=== PATIENT | female | born 1955 | race Caucasian/White ===

== ENCOUNTER → 2018-12-10 | Outpatient (CLI) | payer MEDICARE ==
--- NOTE | 2018-12-10 11:42 | Diagnostic Imaging Report ---
PATIENT HISTORY: OSTEOARTHRITIS SHOULDERS BILATERAL. TECHNIQUE: Three views of the right and left shoulders COMPARISON: None FINDINGS: Right shoulder: There are severe degenerative changes in the right glenohumeral joint with mild remodeling of the humerus articular surface. Multiple large joint bodies are present. There are marked degenerative changes at the acromioclavicular joint as well, with mild offset which may be from prior injury. No acute fracture is seen. Left shoulder: There are severe degenerative changes in the left glenohumeral joint with large osteophytes and mild remodeling of the humerus articular surface. There are moderate degenerative changes in the left acromioclavicular joint. No acute fracture is seen. Alignment otherwise appears normal. IMPRESSION: 1. Severe degenerative changes in the bilateral glenohumeral joints and right acromioclavicular joint. 2. Mild offset at the right AC joint, may be from prior injury. 3. Multiple large joint bodies in the right shoulder. Dictated by: Dictated on workstation # [id number]
== END ==
LOC: RAD FS 10:56
PROVIDERS: ATTEND Nurse Practitioner
DX: M19.012 Primary osteoarthritis, left shoulder (principal); M19.011 Primary osteoarthritis, right shoulder

== ENCOUNTER → 2019-04-08 | Outpatient (CLI) | payer MEDICARE | LOC: CARD 13:51 | PROVIDERS: ATTEND Pediatrics | DX: I51.7 Cardiomegaly (principal); R60.0 Localized edema | CPT/HCPCS: 93306 ==

== ENCOUNTER 2021-07-20 16:06 | Emergency (ER) | payer MEDICARE, MEDICAID ==
[~2021-07-20] VITALS: Ht 170 cm; Wt 170.0 kg
[2021-07-20 16:06] VITALS: BP 131/75
[~2021-07-20 16:06] MED LIST: AMOX-358 PO; ASCO500T75 PO; BISA5TAB8 PO; DIPH25CA79 PO; DOCU-143 PO; FERR325T5 PO; FLUO40CA PO; FURO20TA4 PO; HYDR-3870 PO; LEVO200T6 PO; LISI10TA25 PO; MAGN250T31 PO; MELO15TA39 PO; MULT-166 PO; PANT40TA52 PO; POLY17PO54 PO; POTA99TA18 PO; SENN-234 PO; SULF1TAB38 PO; TRIA1TAB3 PO; Trimethoprim/Sulfamethoxazole PO
[2021-07-20] MEDS ORDERED: NS IV 1000 ML 1,000 ML IV STA ×2 (16:10→17:23)
[2021-07-20 16:22] LABS: BASOPHILS % (AUTO) 0 % (0-10); EOSINOPHILS % (AUTO) 0 % (0-10); HEMATOCRIT 34 % (35-52); HEMOGLOBIN 11.1 g/dL (11.5-16.0); LYMPHOCYTES % (AUTO) 19 % (12-44); MEAN CORPUSCULAR HEMOGLOBIN 29 pg (25-34); MEAN CORPUSCULAR HGB CONC 33 g/dL (32-36); MEAN CORPUSCULAR VOLUME 87 fL (80-99); MEAN PLATELET VOLUME 9.7 fL (9.0-12.2); MONOCYTES # (AUTO) 0.5 10^3/uL (0.0-1.0); MONOCYTES % (AUTO) 10 % (0-12); NEUTROPHILS # (AUTO) 3.8 10^3/uL (1.8-7.8); NEUTROPHILS % (AUTO) 70 % (42-75); PLATELET COUNT 191 10^3/uL (130-400); WHITE BLOOD COUNT 5.4 10^3/uL (4.3-11.0)
[2021-07-20 16:32] LABS: BILIRUBIN,URINE NEGATIVE (NEGATIVE); CLARITY,URINE CLOUDY; COLOR,URINE YELLOW; GLUCOSE, URINE (UA) NEGATIVE (NEGATIVE); KETONES,URINE NEGATIVE (NEGATIVE); LEUKOCYTE ESTERASE ,URINE 1+ (NEGATIVE); NITRITE,URINE POSITIVE (NEGATIVE); PROTEIN,URINE 2+ (NEGATIVE)
[2021-07-20 16:44] LABS: BILIRUBIN,TOTAL 0.4 MG/DL (0.1-1.0); CALCIUM 8.9 MG/DL (8.5-10.1); CREATININE SERUM 1.91 MG/DL (0.60-1.30); POTASSIUM 3.7 MMOL/L (3.6-5.0)
[2021-07-20 16:45] LABS: ALBUMIN 3.6 GM/DL (3.2-4.5); TOTAL PROTEIN 7.4 GM/DL (6.4-8.2)
[2021-07-20 16:46] LABS: BACTERIA,URINE MODERATE /HPF; WBC,URINE 25-50 /HPF
[2021-07-20] MEDS ORDERED: cefTRIAXone 2,000 MG in NS (IVPB) 50 ML IV STA (17:23)
--- NOTE | 2021-07-20 17:33 | Diagnostic Imaging Report ---
PROCEDURE: CT abdomen and pelvis without contrast. TECHNIQUE: Multiple contiguous axial images were obtained through the abdomen and pelvis without the use of intravenous contrast. Auto Exposure Controls were utilized during the CT exam to meet ALARA standards for radiation dose reduction. INDICATION: Diarrhea for one week. COMPARISON: No prior studies are available for comparison. FINDINGS: Imaging through the lung bases does show some patchy airspace infiltrate in the right middle lobe and bilateral lung bases. The liver is unremarkable. The gallbladder is surgically absent. There is no biliary ductal dilatation. The pancreas and spleen are unremarkable. There is a low-density mass involving the right adrenal gland measuring 3.2 x 2.8 cm suggestive of an adenoma. No renal calculi or hydronephrosis is seen. Aorta is calcified but nonaneurysmal. There is diverticulosis of the descending and sigmoid colon. No bowel obstruction is seen. There is no free fluid or fluid collection. No significant inflammatory changes are identified. The uterus and bladder are unremarkable. Severe chronic changes to the left hip are noted. IMPRESSION: 1. Patchy bibasilar infiltrates suggestive of pneumonia. 2. No evidence of urinary tract calculi or obstruction. 3. Low-density right adrenal mass suggestive of adenoma. 4. Colonic diverticulosis without evidence of acute diverticulitis. Dictated by: Dictated on workstation # [id number]
--- NOTE | 2021-07-20 17:37 | Diagnostic Imaging Report ---
INDICATION: Cough. TIME OF EXAM: 05:26 p.m. COMPARISON: No prior studies are available for comparison. FINDINGS: The heart size is normal. The pulmonary vascularity is unremarkable. The lungs are clear. No infiltrate, effusion or pneumothorax is detected. IMPRESSION: No acute cardiopulmonary process is detected. Dictated by: Dictated on workstation # [id number]
[2021-07-20] MEDS ORDERED: LEVO750T39 PO (17:52)
--- NOTE | 2021-07-20 18:29 | ED General ---
General Chief Complaint: General Problems/Pain Stated Complaint: DEHYDRATION Source of Information: Patient, EMS History of Present Illness Date Seen by Provider: Jul 20, 2021 Time Seen by Provider: 16:06 Initial Comments 66 yo female presenting by EMS from home with complaints of having diarrhea and cough x 1 week. She was feeling weak and having body aches. She reports she had her caregiver perform a Covid test on her at home today and it was negative per patient report. She has not called her doctor or tried to contact him or be seen in clinic or urgent care for her symptoms. She reports nothing was worse today, she just felt that her symptoms had gone on too long since it had been a week. She denies abdominal pain, nausea, vomiting, fever, chills, pain with urination, blood in urine, blood in stools. She is morbidly obese and has difficulty with her mobility due to this. She does take chronic pain medicine of Hydrocodone and Meloxicam from her PCP, Dr. York. She also has hypertension and hypothyroid. Timing/Duration: 1 Week Severity: Moderate Modifying Factors: worse with Eating Associated Systoms: No Chest Pain; Cough; No Diaphoresis, No Fever/Chills, No Headaches, No Loss of Appetite; Malaise; No Nausea/Vomiting, No Rash, No Seizure, No Shortness of Air, No Syncope; Weakness (general) Allergies and Home Medications Allergies Coded Allergies: No Known Allergies (Verified Allergy, Unknown, 07/25/19) Patient Home Medication List Home Medication List Reviewed: Yes Amoxicillin/Potassium Clav (Augmentin 875-125 Tablet) 1 Each Tablet, 1 EACH PO BID Prescribed by: SALONI TAVERAS on 08/01/19 0812 Ascorbic Acid (Vitamin C with Rebeca Hips) 500 Mg Tablet, 500 MG PO DAILY, (Reported) Entered as Reported by: ANICETO JEROME on 07/26/19 1126 Bisacodyl (Bisacodyl) 5 Mg Tablet., 5 MG PO DAILY PRN for CONSTIPATION-1ST LINE Prescribed by: SALONI TAVERAS on 08/01/19 0856 Diphenhydramine HCl (Benadryl) 25 Mg Capsule, 25-50 MG PO Q6H PRN for ALLERGIC REACTIONS, (Reported) Entered as Reported by: ANICETO JEROME on 07/26/19 1126 Docusate Sodium (Colace) 100 Mg Capsule, 100 MG PO BID Prescribed by: SALONI TAVERAS on 08/01/19 08 Ferrous Sulfate (Ferrous Sulfate) 325 Mg Tablet.dr, 325 MG PO DAILY Prescribed by: SALONI TAVERAS on 08/01/19 08 Fluoxetine HCl (Fluoxetine HCl) 40 Mg Capsule, 40 MG PO DAILY, (Reported) Entered as Reported by: ANICETO JEROME on 07/26/19 112 Furosemide (Furosemide) 20 Mg Tablet, 20 MG PO DAILY, (Reported) Entered as Reported by: ANICETO JEROME on 07/26/19 112 Hydrocodone/Acetaminophen (Lorcet 5-325 mg Tablet) 1 Each Tablet, 1 EA PO Q6H PRN for PAIN-MODERATE (5-7) Prescribed by: SALONI TAVERAS on 08/01/19811 Levofloxacin (Levofloxacin) 750 Mg Tablet, 750 MG PO DAILY Prescribed by: KATHIA CORTES on 07/20/21 175 Levothyroxine Sodium (Levothyroxine Sodium) 200 Mcg Tablet, 200 MCG PO DAILY, (Reported) Entered as Reported by: ANICETO JEROME on 07/26/191125 Magnesium (Magnesium) 250 Mg Tablet, 250 MG PO DAILY, (Reported) Entered as Reported by: ANICETO JEROME on 07/26/191125 Multivitamin with Minerals (Multivitamins with Minerals) 1 Each Tablet, 1 EACH PO DAILY, (Reported) Entered as Reported by: ANICETO JEROME on 07/26/191125 Pantoprazole Sodium (Pantoprazole Sodium) 40 Mg Tablet.dr, 40 MG PO DAILY Prescribed by: SALONI TAVERAS on 08/01/19811 Polyethylene Glycol 3350 (Polyethylene Glycol 3350) 17 Gm Powd.pack, 17 GM PO DAILY Prescribed by: SALONI TAVERAS on 08/01/19811 Potassium Gluconate (Potassium Gluconate) 99 Mg Tablet.er, 99 MG PO DAILY, (Reported) Entered as Reported by: ANICETO JEROME on 07/26/191125 Sennosides (Senna) 8.6 Mg Tablet, 8.6 MG PO BID Prescribed by: SALONI TAVERAS on 08/01/19855 Sulfamethoxazole/Trimethoprim (Bactrim Ds Tablet) 1 Each Tablet, 1 EACH PO BID WITH MEALS Prescribed by: SALONI TAVERAS on 08/01/19 0814 Triamterene/Hydrochlorothiazid (Triamterene-Hctz 37.5-25 mg Tb) 1 Each Tablet, 1 EA PO BID, (Reported) Entered as Reported by: ANICETO JEROME on 07/26/19 1126 Review of Systems Review of Systems Constitutional: see HPI EENTM: no symptoms reported Respiratory: see HPI Cardiovascular: no symptoms reported Gastrointestinal: see HPI Genitourinary: No dysuria Musculoskeletal: other (chronic arthritis pain and having muscle cramps and pains since she has been having diarrhea) Skin: no symptoms reported Psychiatric/Neurological: No Symptoms Reported Past Blsqsie-Irmsab-Bmqaok Hx Patient Social History Tobacco Use?: No Use of E-Cig and/or Vaping dev: No Substance use?: No Alcohol Use?: No Pt feels they are or have been: No Seasonal Allergies Seasonal Allergies: No Past Medical History Surgery/Hospitalization HX: HTN, Hypothyroid, Morbid Obesity Surgeries: Yes Gallbladder, Tubal Ligation Respiratory: No Cardiac: Yes Hypertension Neurological: No Genitourinary: No Gastrointestinal: No Musculoskeletal: Yes Arthritis Endocrine: Yes Hypothyroidsim HEENT: No Cancer: No Psychosocial: No Integumentary: No Blood Disorders: No Physical Exam Vital Signs Vital Signs - First Documented 07/20/21 16:06 Temp 36.2 Pulse 91 Resp 18 B/P (MAP) 131/75 (93) Pulse Ox 94 O2 Delivery Room Air Capillary Refill : Height, Weight, BMI Height: '" Weight: lbs. oz. kg; 64.81 BMI Method: General Appearance: No Apparent Distress, Obese HEENT: PERRL/EOMI, Pharynx Normal Neck: Full Range of Motion, Normal Inspection, Non Tender, Supple Respiratory: Chest Non Tender, No Accessory Muscle Use, No Respiratory Distress, Decreased Breath Sounds Cardiovascular: Regular Rate, Rhythm, Normal Peripheral Pulses, Other (distant heart sounds due to body habitus) Gastrointestinal: No Pulsatile Mass, Non Tender, Soft, Abnormal Bowel Sounds (hyperactive bowel sounds); No Distended, No Guarding, No Rebound, No Tenderness; Other (obese abdomen limits evaluation) Rectal: Deferred Extremity: Normal Capillary Refill, No Calf Tenderness, Pedal Edema (1+ BLE) Neurologic/Psychiatric: Alert, Oriented x3, incendiary powder mixer II-XII Norm as Tested Skin: Normal Color, Warm/Dry Focused Exam Lactate Level 07/20/21 16:07: Lactic Acid Level 1.53 Lactic Acid Level Laboratory Tests Test 07/20/21 16:07 Lactic Acid Level 1.53 MMOL/L (0.50-2.00) Progress/Results/Core Measures Suspected Sepsis SIRS Temperature: Pulse: Respiratory Rate: Laboratory Tests 07/20/21 16:07: White Blood Count 5.4 Blood Pressure / Mean: 07/20/21 16:07: Lactic Acid Level 1.53 Laboratory Tests 07/20/21 16:07: Creatinine 1.91H, Platelet Count 191, Total Bilirubin 0.4 Results/Orders Lab Results Laboratory Tests Test 07/20/21 16:07 07/20/21 16:12 07/20/21 16:24 Range/Units White Blood Count 5.4 4.3-11.0 10^3/uL Red Blood Count 3.87 3.80-5.11 10^6/uL Hemoglobin 11.1 L 11.5-16.0 g/dL Hematocrit 34 L 35-52 % Mean Corpuscular Volume 87 80-99 fL Mean Corpuscular Hemoglobin 29 25-34 pg Mean Corpuscular Hemoglobin Concent 33 32-36 g/dL Red Cell Distribution Width 14.6 H 10.0-14.5 % Platelet Count 191 130-400 10^3/uL Mean Platelet Volume 9.7 9.0-12.2 fL Immature Granulocyte % (Auto) 1 % Neutrophils (%) (Auto) 70 42-75 % Lymphocytes (%) (Auto) 19 12-44 % Monocytes (%) (Auto) 10 0-12 % Eosinophils (%) (Auto) 0 0-10 % Basophils (%) (Auto) 0 0-10 % Neutrophils # (Auto) 3.8 1.8-7.8 10^3/uL Lymphocytes # (Auto) 1.0 1.0-4.0 10^3/uL Monocytes # (Auto) 0.5 0.0-1.0 10^3/uL Eosinophils # (Auto) 0.0 0.0-0.3 10^3/uL Basophils # (Auto) 0.0 0.0-0.1 10^3/uL Immature Granulocyte # (Auto) 0.1 0.0-0.1 10^3/uL Sodium Level 137 135-145 MMOL/L Potassium Level 3.7 3.6-5.0 MMOL/L Chloride Level 100 98-107 MMOL/L Carbon Dioxide Level 24 21-32 MMOL/L Anion Gap 13 5-14 MMOL/L Blood Urea Nitrogen 22 H 7-18 MG/DL Creatinine 1.91 H 0.60-1.30 MG/DL Estimat Glomerular Filtration Rate 29 BUN/Creatinine Ratio 12 Glucose Level 127 H 70-105 MG/DL Lactic Acid Level 1.53 0.50-2.00 MMOL/L Calcium Level 8.9 8.5-10.1 MG/DL Corrected Calcium 9.2 8.5-10.1 MG/DL Magnesium Level 2.0 1.6-2.4 MG/DL Total Bilirubin 0.4 0.1-1.0 MG/DL Aspartate Amino Transf (AST/SGOT) 26 5-34 U/L Alanine Aminotransferase (ALT/SGPT) 20 0-55 U/L Alkaline Phosphatase 68 40-136 U/L Total Protein 7.4 6.4-8.2 GM/DL Albumin 3.6 3.2-4.5 GM/DL Lipase 47 8-78 U/L Influenza Type A Antigen NEGATIVE NEGATIVE Influenza Type B Antigen NEGATIVE NEGATIVE SARS-CoV-2 RNA (RT-PCR) Detected H Not Detecte Urine Color YELLOW Urine Clarity CLOUDY Urine pH 7.0 5-9 Urine Specific [place] 1.015 L 1.016-1.022 Urine Protein 2+ H NEGATIVE Urine Glucose (UA) NEGATIVE NEGATIVE Urine Ketones NEGATIVE NEGATIVE Urine Nitrite POSITIVE H NEGATIVE Urine Bilirubin NEGATIVE NEGATIVE Urine Urobilinogen 0.2 < = 1.0 MG/DL Urine Leukocyte Esterase 1+ H NEGATIVE Urine RBC (Auto) TRACE-I H NEGATIVE Urine RBC NONE /HPF Urine WBC 25-50 H /HPF Urine Squamous Epithelial Cells 5-10 /HPF Urine Crystals NONE /LPF Urine Bacteria MODERATE H /HPF Urine Casts NONE /LPF Urine Mucus NEGATIVE /LPF Urine Culture Indicated YES My Orders Orders - KATHIA CORTES MD Comprehensive Metabolic Panel (07/20/21 16:10) Lipase (07/20/21 16:10) Ua Culture If Indicated (07/20/21 16:10) Ed Iv/Invasive Line Start (07/20/21 16:10) Cbc With Automated Diff (07/20/21 16:10) Fecal Wbc (07/20/21 16:10) Isolation Central Supply Req (07/20/21 16:10) Blood Culture (07/20/21 16:10) Covid 19 Inhouse Test (07/20/21 16:10) Lactic Acid Analyzer (07/20/21 16:10) Isolation Central Supply Req (07/20/21 16:10) Chest 1 View Ap/Pa Only (07/20/21 16:10) Influenza A & B Antigens (07/20/21 16:10) Magnesium (07/20/21 16:10) Ns Iv 1000 Ml (Sodium Chloride 0.9%) (07/20/21 16:10) Urine Culture (07/20/21 16:24) Ct Abdomen/Pelvis Wo (07/20/21 16:10) Ceftriaxone (Rocephin) (07/20/21 17:23) Ns Iv 1000 Ml (Sodium Chloride 0.9%) (07/20/21 17:23) Vital Signs/I&O 07/20/21 07/20/21 16:06 19:00 Temp 36.2 Pulse 91 85 Resp 18 18 B/P (MAP) 131/75 (93) 122/60 Pulse Ox 94 94 O2 Delivery Room Air Room Air Capillary Refill : Progress Note #1: Progress Note Obtain basic labs, blood cultures, stool for culture, COVID swab with Influenza. Try to get CT scan of abdomen/pelvis and CXR. Give IVF 1 L NS for hydration. differential diagnosis includes Covid, Colitis, Diverticulitis, Gastroenteritis, Food poisoning, viral syndrome Progress Note #2: Time: 16:49 Progress Note CBC stable without elevated WBC count. Lactic acid not elevated. Chemistry shows BUN of 22 with Cr of 1.91. UA does show findings of UTI with Nitrites, LE, 20-50 WBC and Bacteria. Her specific gravity is 1.015. Awaiting CT scan but with her GFR at 29 will have to change to non-contrast study. On review of her old chart in july 2019 her Cr was 1.9 and she has had Cr from 1.4 to 1.9 when she was seen 2 years ago. Progress Note #3: Time: 17:[address] scan of abdomen/pelvis shows no obstruction or acute significant pathology in abdomen/pelvis. She has some bilateral patchy infiltrate in lung bases. She has continued to have good oxygen saturation 98-100 % on room air. Again WBC count and Lactic acid are both normal and not elevated. She does have an adrenal adenoma seen on imaging as an incidental finding. Will proceed with rocephin dose here and an additional Liter of NS for hydration. Will plan on discharge on Levaquin for her lungs and urine coverage. This could help some for her diarrhea if it is infectious but this might just be viral in nature. Still trying to get stool specimen to send for stool studies. Counseled pt to treat for urine and lungs will try using fluorquinolone. The lungs having patchy bilateral infiltrate concerning for Covid but swab from here would take up to 24 to 48 hours to come back.Counseled to quarantine until results from [facility] are known. Treat symptomaticaly along [facility] antibiotic for UTI and possible atypical or bacterial pneumonia. Diagnostic Imaging Diagonstic Imaging: CT Plain Films/CT/US/NM/MRI: abdomen, pelvis Comments NAME: AUTUMN BROWN MED REC#: [id number] PT STATUS: REG ER : 1955 PHYSICIAN: KATHIA CORTES MD ADMIT DATE: 07/20/21/ER FS Draft Date of Exam:07/20/21 CT ABDOMEN/PELVIS WO PROCEDURE: CT abdomen and pelvis without contrast. TECHNIQUE: Multiple contiguous axial images were obtained through the abdomen and pelvis without the use of intravenous contrast. Auto Exposure Controls were utilized during the CT exam to meet ALARA standards for radiation dose reduction. INDICATION: Diarrhea for one week. COMPARISON: No prior studies are available for comparison. FINDINGS: Imaging through the lung bases does show some patchy airspace infiltrate in the right middle lobe and bilateral lung bases. The liver is unremarkable. The gallbladder is surgically absent. There is no biliary ductal dilatation. The pancreas and spleen are unremarkable. There is a low-density mass involving the right adrenal gland measuring 3.2 x 2.8 cm suggestive of an adenoma. No renal calculi or hydronephrosis is seen. Aorta is calcified but nonaneurysmal. There is diverticulosis of the descending and sigmoid colon. No bowel obstruction is seen. There is no free fluid or fluid collection. No significant inflammatory changes are identified. The uterus and bladder are unremarkable. Severe chronic changes to the left hip are noted. IMPRESSION: 1. Patchy bibasilar infiltrates suggestive of pneumonia. 2. No evidence of urinary tract calculi or obstruction. 3. Low-density right adrenal mass suggestive of adenoma. 4. Colonic diverticulosis without evidence of acute diverticulitis. Dictated on workstation # [id number] Dict: 07/20/21 1726 Trans: 07/20/21 173 [id number] Interpreted by: ERICKA PRESCOTT MD Electronically signed by: Reviewed: Reviewed by Me Diagonstic Imaging: Xray Plain Films/CT/US/NM/MRI: chest Comments [facility] [place] NAME: AUTUMN BROWN [facility] REC#: [id number] PT STATUS: REG ER : 1955 PHYSICIAN: KATHIA CORTES MD ADMIT DATE: 07/20/21/ER FS Draft Date of Exam:07/20/21 CHEST 1 VIEW AP/PA ONLY INDICATION: Cough. TIME OF EXAM: 05:26 p.m. COMPARISON: No prior studies are available for comparison. FINDINGS: The heart size is normal. The pulmonary vascularity is unremarkable. The lungs are clear. No infiltrate, effusion or pneumothorax is detected. IMPRESSION: No acute cardiopulmonary process is detected. 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 Decision time for Depature: 18:53 Referrals: MOISES YORK MD (PCP/Family) Primary Care Physician Patient Instructions: COVID-19 Overview, COVID-19 Tests, Diarrhea, Adult ED, Pneumonia, Adult ED, Urinary Tract Infection, Adult ED Add. Discharge Instructions: Push fluids and hydration. Take full course of antibiotic to treat for infection in urine and lungs. You could try taking Imodium for the diarrhea and increase Fiber in your diet to help with diarrhea. Take Probiotic to help replace good bacteria in your gut and help with diarrhea. Check with your primary care provider for continued concerns and the adenoma of the right adrenal gland. Your Covid test from the ER tonight is still pending and you should quarantine until it comes back in the next 24 to 36 hours. All discharge instructions reviewed with patient and/or family. Voiced understanding. Scripts Levofloxacin (Levofloxacin) 750 Mg Tablet 750 MG PO DAILY for UTI/Pneumonia for 10 Days, #10 TAB 0 Refills Prov: KATHIA CORTES MD 07/20/21 KATHIA CORTES MD Jul 20, 2021 16:34
[2021-07-21] MEDS ORDERED: MOLN200C PO (20:45)
[2021-07-21] MEDS ORDERED: ONDA4TAB11 PO (20:45)
== END 2021-07-20 19:33 | disposition home or self-care (01) ==
LOC: EDUNIT# 16:06 → ER FS 16:07
DX: U07.1 COVID-19 (principal); R19.7 Diarrhea, unspecified; N30.90 Cystitis, unspecified without hematuria; R91.8 Other nonspecific abnormal finding of lung field; E66.01 Morbid (severe) obesity due to excess calories; Z68.43 Body mass index [BMI] 50.0-59.9, adult; I12.9 Hypertensive chronic kidney disease with stage 1 through stage 4 chronic kidney disease, or unspecified chronic kidney disease; N18.30 Chronic kidney disease, stage 3 unspecified; E03.9 Hypothyroidism, unspecified; D35.01 Benign neoplasm of right adrenal gland
CPT/HCPCS: 36415; 71045; 74176; 80053; 81000; 83605; 83690; 83735; 85025; 87040; 87077; 87088; 87636; 87804

== ENCOUNTER 2021-07-21 17:44 | Emergency (ER) | payer MEDICARE, MEDICAID ==
[~2021-07-21] VITALS: Ht 157 cm; Wt 170.0 kg
[~2021-07-21 17:44] MED LIST changes: +LEVO750T39 PO
--- NOTE | 2021-07-21 19:06 | Diagnostic Imaging Report ---
INDICATION: Cough. COMPARISON: Prior examination from 07/20/2021. FINDINGS: The heart size is normal. There are patchy bilateral pulmonary infiltrates. There is no pleural effusion or pneumothorax. The mediastinum is unremarkable. IMPRESSION: Patchy bibasilar bilateral pulmonary infiltrates suspect for an atypical pneumonia, possibly Covid. Recommend clinical correlation. Dictated by: Dictated on workstation # [id number]
[2021-07-21] MEDS ORDERED: RT-ALBUTEROL HFA 8.5 GM INHALER IH STA (19:42)
--- NOTE | 2021-07-21 20:44 | ED General ---
General Chief Complaint: COVID19 Suspect/Confirmed Stated Complaint: SOA Nursing Triage Note: PT REPORTS SOB THIS AM. SHE TESTED COVID+ LAST PM IN THE ER. Source of Information: Patient, Caregiver, Family, Old Records Exam Limitations: No Limitations History of Present Illness Date Seen by Provider: Jul 21, 2021 Time Seen by Provider: 18:47 Initial Comments This is 66-year-old woman presents to the emergency room via EMS with complaints of shortness of breath. She was seated the emergency room yesterday with diarrhea and shortness of breath. She was tested for COVID-19 and staff had been unable to contact her as her phone ran out of minutes. On arrival she does seem somewhat dyspneic but her vital signs are stable. She has hypertensive but states she has not taken her blood pressure medicine yet today. She is not ambulatory and is significantly obese. She has a care provider who is in the home daily. During her ER visit yesterday she was diagnosed with UTI and pneumonia. She was started on Levaquin and states she took her dose of Levaquin today. Sensitivity is pending on her Klebsiella pneumonia urine culture. Allergies and Home Medications Allergies Coded Allergies: No Known Allergies (Verified Allergy, Unknown, 07/25/19) Patient Home Medication List Home Medication List Reviewed: Yes Amoxicillin/Potassium Clav (Augmentin 875-125 Tablet) 1 Each Tablet, 1 EACH PO BID Prescribed by: SALONI TAVERAS on 08/01/19811 Ascorbic Acid (Vitamin C with Rebeca Hips) 500 Mg Tablet, 500 MG PO DAILY, (Reported) Entered as Reported by: ANICETO JEROME on 07/26/19 112 Bisacodyl (Bisacodyl) 5 Mg Tablet., 5 MG PO DAILY PRN for CONSTIPATION-1ST LINE Prescribed by: SALONI TAVERAS on 08/01/19 08 Diphenhydramine HCl (Benadryl) 25 Mg Capsule, 25-50 MG PO Q6H PRN for ALLERGIC REACTIONS, (Reported) Entered as Reported by: ANICETO JEROME on 07/26/19 112 Docusate Sodium (Colace) 100 Mg Capsule, 100 MG PO BID Prescribed by: SALONI TAVERAS on 08/01/19 08 Ferrous Sulfate (Ferrous Sulfate) 325 Mg Tablet., 325 MG PO DAILY Prescribed by: SALONI TAVERAS on 08/01/19 811 Fluoxetine HCl (Fluoxetine HCl) 40 Mg Capsule, 40 MG PO DAILY, (Reported) Entered as Reported by: ANICETO JEROME on 07/26/191125 Furosemide (Furosemide) 20 Mg Tablet, 20 MG PO DAILY, (Reported) Entered as Reported by: ANICETO JEROME on 07/26/191125 Hydrocodone/Acetaminophen (Lorcet 5-325 mg Tablet) 1 Each Tablet, 1 EA PO Q6H PRN for PAIN-MODERATE (5-7) Prescribed by: SALONI TAVERAS on 08/01/19811 Levofloxacin (Levofloxacin) 750 Mg Tablet, 750 MG PO DAILY Prescribed by: KATHIA CORTES on 07/20/211751 Levothyroxine Sodium (Levothyroxine Sodium) 200 Mcg Tablet, 200 MCG PO DAILY, (Reported) Entered as Reported by: ANICETO JEROME on 07/26/191125 Magnesium (Magnesium) 250 Mg Tablet, 250 MG PO DAILY, (Reported) Entered as Reported by: ANICETO JEROME on 07/26/191125 Molnupiravir (Molnupiravir (Eua)) 200 Mg Capsule, 800 MG PO BID Prescribed by: VANESSA LEWIS on 07/21/212044 Multivitamin with Minerals (Multivitamins with Minerals) 1 Each Tablet, 1 EACH PO DAILY, (Reported) Entered as Reported by: ANICETO JEROME on 07/26/191125 Ondansetron (Ondansetron Odt) 4 Mg Tab.rapdis, 4 MG PO Q4H PRN for NA USEA/VOMITING Prescribed by: VANESSA LEWIS on 07/21/212044 Pantoprazole Sodium (Pantoprazole Sodium) 40 Mg Tablet.dr, 40 MG PO DAILY Prescribed by: SALONI TAVERAS on 08/01/19811 Polyethylene Glycol 3350 (Polyethylene Glycol 3350) 17 Gm Powd.pack, 17 GM PO DAILY Prescribed by: SALONI TAVERAS on 08/01/19811 Potassium Gluconate (Potassium Gluconate) 99 Mg Tablet.er, 99 MG PO DAILY, (Reported) Entered as Reported by: ANICETO JEROME on 07/26/191125 Sennosides (Senna) 8.6 Mg Tablet, 8.6 MG PO BID Prescribed by: SALONI TAVERAS on 08/01/19 0856 Sulfamethoxazole/Trimethoprim (Bactrim Ds Tablet) 1 Each Tablet, 1 EACH PO BID WITH MEALS Prescribed by: SALONI TAVERAS on 08/01/19 0814 Triamterene/Hydrochlorothiazid (Triamterene-Hctz 37.5-25 mg Tb) 1 Each Tablet, 1 EA PO BID, (Reported) Entered as Reported by: ANICETO JEROME on 07/26/19 1126 Review of Systems Review of Systems Constitutional: no symptoms reported EENTM: no symptoms reported Respiratory: see HPI Cardiovascular: no symptoms reported Gastrointestinal: see HPI, diarrhea Genitourinary: no symptoms reported : No Musculoskeletal: no symptoms reported Skin: no symptoms reported Psychiatric/Neurological: No Symptoms Reported Hematologic/Lymphatic: No Symptoms Reported Immunological/Allergic: no symptoms reported Past Ajxcefn-Mmnoxg-Cpkccz Hx Patient Social History Tobacco Use?: No Use of E-Cig and/or Vaping dev: No Substance use?: No Alcohol Use?: No Pt feels they are or have been: No Seasonal Allergies Seasonal Allergies: No Past Medical History Surgery/Hospitalization HX: HTN, Hypothyroid, Morbid Obesity Surgeries: Yes Gallbladder, Tubal Ligation Respiratory: No Cardiac: Yes Hypertension Neurological: No : No Genitourinary: No Gastrointestinal: No Musculoskeletal: Yes Arthritis Endocrine: Yes (Morbid obesity) Hypothyroidsim HEENT: No Cancer: No Psychosocial: No Integumentary: No Blood Disorders: No Physical Exam Vital Signs Vital Signs - First Documented 07/21/21 17:45 Temp 36.9 Pulse 72 Resp 18 B/P (MAP) 130/78 (95) Pulse Ox 99 O2 Delivery Room Air Capillary Refill : Less Than 3 Seconds Height, Weight, BMI Height: '" Weight: lbs. oz. kg; 68.00 BMI Method: General Appearance: No Apparent Distress, WD/WN, Obese HEENT: PERRL/EOMI, Normal ENT Inspection Neck: Normal Inspection Respiratory: Lungs Clear, Normal Breath Sounds, No Accessory Muscle Use, Other (Mild dyspnea) Cardiovascular: Regular Rate, Rhythm, No Edema, No Murmur Gastrointestinal: Non Tender, Soft Extremity: Normal Inspection, No Pedal Edema Neurologic/Psychiatric: Alert, Oriented x3, Normal Mood/Affect Skin: Normal Color, Warm/Dry Progress/Results/Core Measures Suspected Sepsis SIRS Temperature: Pulse: 72 Respiratory Rate: 18 Blood Pressure 130 /78 Mean: 95 Results/Orders My Orders Orders - VANESSA TOBIAS MD Albuterol Inhaler (Albuterol) (07/21/21 19:42) Vital Signs/I&O 07/21/21 07/21/21 17:45 21:00 Temp 36.9 Pulse 72 87 Resp 18 19 B/P (MAP) 130/78 (95) 122/68 Pulse Ox 99 99 O2 Delivery Room Air Room Air Capillary Refill : Less Than 3 Seconds Blood Pressure Mean: 95 Progress Note : Progress Note Vital signs were stable and patient did not require any oxygen therapy. She does report having to take inhaled treatments in the past for bronchitis. She was dispensed an inhaler to use should wheezing or shortness of breath worsen. I had a conversation with her care provider, Gris Valentin ([phone]) who is able to be with Gustabo throughout the day and monitor her oxygen saturations. She will obtain a pulse oximeter from a friend that she can use for this purpose. I discussed treatment options with Jeevan, and she indicates she would like to try oral antiviral therapy. She does understand that this is experimental therapy authorized for emergency use. A prescription for Molnupiravir was sent to the [facility] pharmacy. Patient was discharged home via EMS. Diagnostic Imaging Diagonstic Imaging: Xray Plain Films/CT/US/NM/MRI: chest Comments NAME: GUSTABO BROWN MED REC#: [id number] PT STATUS: REG ER : 1955 PHYSICIAN: LASHELL SWAN MD ADMIT DATE: 07/21/21/ER FS Signed Date of Exam:07/21/21 CHEST 1 VIEW AP/PA ONLY INDICATION: Cough. COMPARISON: Prior examination from 07/20/2021. FINDINGS: The heart size is normal. There are patchy bilateral pulmonary infiltrates. There is no pleural effusion or pneumothorax. The mediastinum is unremarkable. IMPRESSION: Patchy bibasilar bilateral pulmonary infiltrates suspect for an atypical pneumonia, possibly Covid. Recommend clinical correlation. Dictated by: Dictated on workstation # [id number] Dict: 07/21/211902 Trans: 07/21/211921 [facility] [phone] Interpreted by: DANA ROSE MD Electronically signed by: DANA ROSE MD 07/21/211921 Departure Impression Primary Impression: Pneumonia due to COVID-19 virus Additional Impressions: Urinary tract infection Qualified Codes: N39.0 - Urinary tract infection, site not specified Shortness of breath High blood pressure Qualified Codes: I10 - Essential (primary) hypertension Disposition: HOME, SELF-CARE Condition: Improved Departure-Patient Inst. Decision time for Depature: 20:38 Referrals: MOISES YORK MD (PCP/Family) Primary Care Physician Patient Instructions: COVID-19 ED, High Blood Pressure ED, Urinary Tract Infection, Adult ED Add. Discharge Instructions: Check the pulse oximetry at least 2 or 3 times a day or anytime you have i ncreased shortness of breath. If there are repeated measurements less than 92% or any measurements less than 90%, return to the emergency room. Quarantine for at least 10 days from onset of symptoms. Contact your primary care provider or the ER tomorrow to review urine culture results. Push clear liquids to stay well-hydrated. Use Zofran (ondansetron) as prescribed if needed for nausea and vomiting. Use your inhaler up to 4 puffs in a 4-hour period of time if you are wheezing or have increased shortness of breath. It is very important that you change positions and move about often. COVID-19 symptoms tend to be less severe and oxygen levels better when you change positions often. Read to the information provided for Molnupiravir. supervisor prepress the medication from the [facility] and start it as soon as possible. Call with questions or concerns, and return to the ER if there are worsening symptoms. All discharge instructions reviewed with patient and/or family. Voiced understanding. Scripts Ondansetron (Ondansetron Odt) 4 Mg Tab.rapdis 4 MG PO Q4H PRN for NAUSEA/VOMITING, #10 TAB Prov: VANESSA TOBIAS MD 07/21/21 Molnupiravir (Molnupiravir (Eua)) 200 Mg Capsule 800 MG PO BID for 5 Days, #40 CAP Prov: VANESSA TOBIAS MD 07/21/21 Copy Copies To 1: MOISES YORK MD, JOSHUA T MD Jul 21, 2021 20:44
[2021-07-21] MEDS ORDERED: ONDA4TAB11 PO (20:45)
[2021-07-21] MEDS ORDERED: MOLN200C PO (20:45)
[2021-07-21 21:00] VITALS: BP 122/68
== END 2021-07-21 21:00 | disposition home or self-care (01) ==
LOC: EDUNIT# 17:44 → ER FS 17:45
DX: U07.1 COVID-19 (principal); J12.82 Pneumonia due to coronavirus disease 2019; N39.0 Urinary tract infection, site not specified; I10 Essential (primary) hypertension; E66.01 Morbid (severe) obesity due to excess calories; Z68.44 Body mass index [BMI] 60.0-69.9, adult
CPT/HCPCS: 71045

== ENCOUNTER 2023-04-04 13:54 | Emergency (ER) | payer MEDICARE, MEDICAID ==
[~2023-04-04 13:54] MED LIST changes: +BISA5TAB20 PO; -BISA5TAB8 PO; +LEVO750T PO; -LEVO750T39 PO; +MOLN200C PO; +ONDA4TAB11 PO
--- NOTE | 2023-04-04 14:20 | ED General ---
General Chief Complaint: General Problems/Pain Stated Complaint: LT HAND RING ENTRAPMENT Source of Information: Patient, EMS History of Present Illness Date Seen by Provider: Apr 04, 2023 Time Seen by Provider: 13:54 Initial Comments 67-year-old female presenting with bilateral hand swelling left greater than right. She has multiple rings on both hands and they were getting too tight and swollen to be comfortable. She was requesting to have the rings cut off. She is bedbound so was unable to get out on her own. EMS transported her here and they were able to remove multiple rings from the left hand other than 1 wide ring with gems in the center channel. Tried using a ring cutter as well as cutter grinder with success on some of the rings. Timing/Duration: 12-24 Hours Associated Systoms: Denies Symptoms; No Chest Pain, No Cough Allergies and Home Medications Allergies Coded Allergies: No Known Allergies (Verified Allergy, Unknown, 07/25/19) Patient Home Medication List Home Medication List Reviewed: Yes Amoxicillin/Potassium Clav (Augmentin 875-125 Tablet) 1 Each Tablet, 1 EACH PO BID Prescribed by: SALONI TAVERAS on 08/01/19 08 Ascorbic Acid (Vitamin C with Rebeca Hips) 500 Mg Tablet, 500 MG PO DAILY, (Reported) Entered as Reported by: ANICETO JEROME on 07/26/19 1126 Bisacodyl (Bisacodyl) 5 Mg Tablet., 5 MG PO DAILY PRN for CONSTIPATION-1ST LINE Prescribed by: SALONI TAVERAS on 08/01/19 0856 Diphenhydramine HCl (Benadryl) 25 Mg Capsule, 25-50 MG PO Q6H PRN for ALLERGIC REACTIONS, (Reported) Entered as Reported by: ANICETO JEROME on 07/26/19 112 Docusate Sodium (Colace) 100 Mg Capsule, 100 MG PO BID Prescribed by: SALONI TAVERAS on 08/01/19 0856 Ferrous Sulfate (Ferrous Sulfate) 325 Mg Tablet.dr, 325 MG PO DAILY Prescribed by: SALONI TAVERAS on 08/01/19 0812 Fluoxetine HCl (Fluoxetine HCl) 40 Mg Capsule, 40 MG PO DAILY, (Reported) Entered as Reported by: ANICETO JEROME on 07/26/19 112 Furosemide (Furosemide) 20 Mg Tablet, 20 MG PO DAILY, (Reported) Entered as Reported by: ANICETO JEROME on 07/26/19 112 Hydrocodone/Acetaminophen (Lorcet 5-325 mg Tablet) 1 Each Tablet, 1 EA PO Q6H PRN for PAIN-MODERATE (5-7) Prescribed by: SALONI TAVERAS on 08/01/19811 Levofloxacin (Levofloxacin) 750 Mg Tablet, 750 MG PO DAILY Prescribed by: KATHIA CORTES on 07/20/211751 Levothyroxine Sodium (Levothyroxine Sodium) 200 Mcg Tablet, 200 MCG PO DAILY, (Reported) Entered as Reported by: ANICETO JEROME on 07/26/191125 Magnesium (Magnesium) 250 Mg Tablet, 250 MG PO DAILY, (Reported) Entered as Reported by: ANICETO JEROME on 07/26/191125 Molnupiravir (Molnupiravir (Eua)) 200 Mg Capsule, 800 MG PO BID Prescribed by: VANESSA LEWIS on 07/21/212044 Multivitamin with Minerals (Multivitamins with Minerals) 1 Each Tablet, 1 EACH PO DAILY, (Reported) Entered as Reported by: ANICETO JEROME on 07/26/191125 Ondansetron (Ondansetron Odt) 4 Mg Tab.rapdis, 4 MG PO Q4H PRN for NAUSEA/VOMITING Prescribed by: VANESSA LEWIS on 07/21/212044 Pantoprazole Sodium (Pantoprazole Sodium) 40 Mg Tablet.dr, 40 MG PO DAILY Prescribed by: SALONI TAVERAS on 08/01/19811 Polyethylene Glycol 3350 (Polyethylene Glycol 3350) 17 Gm Powd.pack, 17 GM PO DAILY Prescribed by: SALONI TAVERAS on 08/01/19811 Potassium Gluconate (Potassium Gluconate) 99 Mg Tablet.er, 99 MG PO DAILY, (Reported) Entered as Reported by: ANICETO JEROME on 07/26/191125 Sennosides (Senna) 8.6 Mg Tablet, 8.6 MG PO BID Prescribed by: SALONI TAVERAS on 08/01/19 0856 Sulfamethoxazole/Trimethoprim (Bactrim Ds Tablet) 1 Each Tablet, 1 EACH PO BID WITH MEALS Prescribed by: SALONI TAVERAS on 08/01/19 0814 Triamterene/Hydrochlorothiazid (Triamterene-Hctz 37.5-25 mg Tb) 1 Each Tablet, 1 EA PO BID, (Reported) Entered as Reported by: ANICETONini JEROME on 07/26/19 1126 Review of Systems Review of Systems Constitutional: No chills, No fever EENTM: no symptoms reported Respiratory: no symptoms reported Cardiovascular: edema (Bilateral hands left greater than right) Past Kzahzwv-Enfgjt-Fbdljf Hx Seasonal Allergies Seasonal Allergies: No Past Medical History Surgery/Hospitalization HX: HTN, Hypothyroid, Morbid Obesity Surgeries: Yes Gallbladder, Tubal Ligation Respiratory: No Cardiac: Yes Hypertension Neurological: No Genitourinary: No Gastrointestinal: No Musculoskeletal: Yes Arthritis Endocrine: Yes (Morbid obesity) Hypothyroidsim HEENT: No Cancer: No Psychosocial: No Integumentary: No Blood Disorders: No Physical Exam Vital Signs Capillary Refill : Height, Weight, BMI Height: '" Weight: lbs. oz. kg; 68.00 BMI Method: General Appearance: No Apparent Distress, Obese Extremity: Swelling (Bilateral hand swelling left greater than right) Neurologic/Psychiatric: Alert, Oriented x3 Skin: Normal Color, Warm/Dry Procedures/Interventions Progress A total of 11 rings were removed from her left and right hand. 1 ring on the right middle finger and 1 ring on the left middle finger had to be cut. The other rings were able to be removed by traction with lubricant. There was one remaining ring on the left index finger that could not be removed here in the emergency department. Patient will go to a local jeweler to see about having it removed. Progress/Results/Core Measures Suspected Sepsis SIRS Temperature: Pulse: Respiratory Rate: Blood Pressure / Mean: Results/Orders Vital Signs/I&O Capillary Refill : Progress Note : Progress Note Multiple rings were removed from the left hand by EMS using soap and traction. 1 ring did have to be cut with the cutter grinder and ring cutter. All of the rings except for 1 on the right middle finger were removed. A wide ring with gems in a center channel remained on the left index finger. Will see if patient could get to a jeweler that might have a electric cutter to remove the rings. Just prior to leaving the emergency department EMS was able to cut the remaining ring on the right middle finger and remove it. The ring on the left index finger remains so they went to a local jeweler to see about trying to remove it. Departure Impression Primary Impression: Bilateral hand swelling Disposition: HOME, SELF-CARE Condition: Stable Departure-Patient Inst. Decision time for Depature: 14:19 Referrals: MOISES YORK MD (PCP/Family) Primary Care Physician Patient Instructions: Swelling Add. Discharge Instructions: Use ice for 10 to 15 minutes every few hours as needed and keep your hands elevated above heart level is much as possible to help with swelling and pain. Check back with primary care provider for continued concerns. All discharge instructions reviewed with patient and/or family. Voiced understanding. KATHIA CORTES MD Apr 04, 2023 14:20
== END 2023-04-04 14:30 | disposition home or self-care (01) ==
LOC: ER FS 13:54 → EDUNIT# 13:54 → ER FS 14:30
DX: M79.89 Other specified soft tissue disorders (principal); E66.9 Obesity, unspecified; Z68.44 Body mass index [BMI] 60.0-69.9, adult
CPT/HCPCS: 99283